=== PATIENT | female | born 1940 | race Caucasian/White ===

== ENCOUNTER → 2017-06-16 | Outpatient (CLI) | payer MEDICARE, OTHER ==
--- NOTE | 2017-06-16 12:14 | WOMENS IMAGING REPORT ---
EXAM DESCRIPTION: 3D SCREENING MAMMO BILAT COMPLETED DATE/TIME: 06/16/2017 10:31 am REASON FOR STUDY: ROUTINE SCREENING 3D; Z12.31 Z12.31 ENCNTR SCREEN MAMMOGRAM FOR MALIGNANT NEOPLAS M OF NIMISHA COMPARISON: 06/14/2016 and 03/28/2015. TECHNIQUE: Standard craniocaudal and mediolateral oblique views of each breast recorded using digita l acquisition and breast tomosynthesis. LIMITATIONS: None. FINDINGS: No masses, calcifications or architectural distortion. No areas of suspicion. Read with the assistance of CAD. .[facility] - R2 Cenova Version 1.3 .[facility] - R2 Cenova Version 1.3 .[facility] - R2 Cenova Version 2.4 .[facility] [place] R2 Cenova Version 2.4 .[facility] - R2 Ar Manager Version 9.2 IMPRESSION: NORMAL MAMMOGRAM. BIRADS 1. BREAST DENSITY: a. The breasts are almost entirely fatty. BIRAD: 1 NEGATIVE RECOMMENDATION: ROUTINE SCREENING COMMENT: The patient has been notified of the results by letter per SA requirements. Additional no tification policies are in place for contacting patient with suspicious or incomplete findings. Quality ID #225: The [employer] [employer] recommends an annual screening mammogram for women aged 40 years or over. This facility utilizes a reminder system to ensure that all patients receive reminder letters, and/or direct phone calls for appointments. This includes reminders for routine scr eening mammograms, diagnostic mammograms, or other Breast Imaging Interventions when appropriate. Th is patient will be placed in the appropriate reminder system. The [place] [employer] (ACR) has developed recommendations for screening MRI of the breast s in certain patient populations, to be used in conjunction with mammography. Breast MRI surveillanc e may be appropriate for women with more than 20% lifetime risk of developing breast cancer as deter mined by genetic testing, significant family history of the disease, or history of mantle radiation f or Hodgkins Disease. ACR Practice Guidelines 2008. DBT Technology DBT is a type of tomographic mammography. With conventional mammography, overlapping breast tissue ma y make lesions difficult to detect, even with good compression. DBT uses an x-ray tube that rotates a round the breast, taking images at different angles. These images are then combined to create thin sl ices of the breast that the radiologist can view as a 3D reconstruction. The [employer] Squad unit can perform full-field digital mammograms (2D imaging); or DBT (3D imaging); or both, in a combination mode that quickly performs both the mammogram and the tomosynthesis scan while the breast is still compressed. PQRS 6045F: Fluoroscopic imaging is not utilized for breast tomosynthesis. TECHNICAL DOCUMENTATION: FINDING NUMBER: (1) ASSESSMENT: (1) JOB ID: [id number] [email or web address]- All Rights Reserved
== END ==
LOC: WI 10:59
PROVIDERS: ATTEND Internal Medicine
DX: Z12.31 Encounter for screening mammogram for malignant neoplasm of breast (principal)
CPT/HCPCS: 77063; G0202; 77067

== ENCOUNTER 2018-02-25 08:51 | Emergency (ER) | payer MEDICARE, OTHER ==
[2018-02-25] MEDS ORDERED: RINGERS SOLUTION,LACTATED 1,000 ML IV ONE (09:24)
[2018-02-25] MEDS ORDERED: ONDANSETRON HCL INJ/PF 4 MG/2 ML SDV IV ONE (09:24)
[2018-02-25] MEDS ORDERED: PROCHLORPERAZINE EDISYLATE INJ 10 MG/2 ML VIAL IV ONE (09:24)
[2018-02-25 10:20] LABS: ANION GAP 11 (5-19); BLOOD UREA NITROGEN 16 mg/dL (7-20); CALCIUM 9.4 mg/dL (8.4-10.2); CARBON DIOXIDE 30 mmol/L (22-30); CHLORIDE 100 mmol/L (98-107); GLUCOSE 103 mg/dL (75-110); POTASSIUM 4.3 mmol/L (3.6-5.0); SODIUM 140.5 mmol/L (137-145)
--- NOTE | 2018-02-25 10:37 | RADIOLOGY REPORT (SQ) ---
EXAM DESCRIPTION: CT HEAD WITHOUT COMPLETED DATE/TIME: 02/25/2018 10:12 am REASON FOR STUDY: barry COMPARISON: None. TECHNIQUE: Axial images acquired through the brain without intravenous contrast. Images reviewed wi th bone, brain and subdural windows. Additional sagittal and coronal reconstructions were generated. Images stored on PACS. All CT scanners at this facility use dose modulation, iterative reconstruction, and/or weight based d osing when appropriate to reduce radiation dose to as low as reasonably achievable (ALARA). [facility]: Dose Right [facility]: CareDose [facility]: Dose Right [facility]: Teradose 4D [facility]: Dapt RADIATION DOSE: CT Rad equipment meets quality standard of care and radiation dose reduction techniq ues were employed. CTDIvol: 53.2 mGy. DLP: 964 mGy-cm. mGy. LIMITATIONS: None. FINDINGS: VENTRICLES: Normal size and contour. CEREBRUM: No masses. No hemorrhage. No midline shift. No evidence for acute infarction. Normal gra y/white matter differentiation. No areas of low density in the white matter. CEREBELLUM: No masses. No hemorrhage. No alteration of density. No evidence for acute infarction. EXTRAAXIAL SPACES: No fluid collections. No masses. ORBITS AND GLOBE: No intra- or extraconal masses. Normal contour of globe without masses. CALVARIUM: No fracture. PARANASAL SINUSES: No fluid or mucosal thickening. SOFT TISSUES: No mass or hematoma. OTHER: No other significant finding. IMPRESSION: No significant intracranial abnormalities were identified. Findings as noted above EVIDENCE OF ACUTE STROKE: NO. COMMENT: Quality ID # [id number]: Final reports with documentation of one or more dose reduction techniques (e.g., Automated exposure control, adjustment of the mA and/or kV according to patient size, use of iterative reconstruction technique) TECHNICAL DOCUMENTATION: JOB ID: [id number] [employer]- All Rights Reserved Reading location - IP/workstation name: [email or web address]
[2018-02-25] MEDS ORDERED: KETOROLAC TROMETHAMINE INJ/PF 30 MG/1 ML SDV IV ONE (10:49)
--- NOTE | 2018-02-25 12:00 | ER Document Report ---
ED General - General Chief Complaint: Headache >24 hrs old Stated Complaint: HEADACHE Time Seen by Provider: 02/25/18 09:12 TRAVEL OUTSIDE OF THE [place] IN LAST 30 DAYS: No - HPI Patient complains to provider of: Headache Notes: Patient coming in for headache ongoing for the last 3 days. Patient states sharp shooting in nature on the right side of her head. Patient denies any fevers chills nausea vomiting diarrhea denies any trauma. Patient states she has not had a headache like this before however was able to drive to the ER for evaluation. Patient states no relief with Tylenol Motrin at home. Patient otherwise is resting comfortably in a chair no signs of any obvious distress. Patient states she did have chickenpox as she was younger no history of shingles - Related Data Allergies/Adverse Reactions: codeine [Codeine] Allergy (Intermediate, Verified 02/25/18 08:53) N&V Past Medical History - Social History Smoking Status: Unknown if Ever Smoked Chew tobacco use (# tins/day): No Frequency of alcohol use: None Drug Abuse: None Family History: None Patient has suicidal ideation: No Patient has homicidal ideation: No - Past Medical History Cardiac Medical History: Reports: Hx Hypercholesterolemia, Hx Hypertension Denies: Hx Coronary Artery Disease, Hx Heart Attack Pulmonary Medical History: Denies: Hx Asthma, Hx Bronchitis, Hx COPD, Hx Pneumonia Neurological Medical History: Denies: Hx Cerebrovascular Accident, Hx Seizures Renal/ Medical History: Denies: Hx Peritoneal Dialysis GI Medical History: Reports: Hx Gastroesophageal Reflux Disease Musculoskeltal Medical History: Denies Hx Arthritis Past Surgical History: Reports: Hx Thyroid Surgery. Denies: Hx Pacemaker - Immunizations Hx Diphtheria, Pertussis, Tetanus Vaccination: No Hx Pneumococcal Vaccination: 08/13/11 Review of Systems - Review of Systems Constitutional: No symptoms reported EENT: No symptoms reported Cardiovascular: No symptoms reported Respiratory: No symptoms reported Gastrointestinal: No symptoms reported Genitourinary: No symptoms reported Female Genitourinary: No symptoms reported Musculoskeletal: No symptoms reported Skin: No symptoms reported Hematologic/Lymphatic: No symptoms reported Neurological/Psychological: Headaches -: Yes All other systems reviewed and negative Physical Exam - Vital signs Vitals: Temp Pulse Resp BP Pulse Ox 98.1 F 86 16 148/69 H 98 02/25/18 08:55 02/25/18 08:55 02/25/18 08:55 02/25/18 08:55 02/25/18 08:55 Interpretation: Normal - General General appearance: Appears well, Alert - HEENT Head: Normocephalic, Atraumatic Eyes: Normal Pupils: PERRL - Respiratory Respiratory status: No respiratory distress Chest status: Nontender Breath sounds: Normal Chest palpation: Normal - Cardiovascular Rhythm: Regular Heart sounds: Normal auscultation Murmur: No - Abdominal Inspection: Normal Distension: No distension Bowel sounds: Normal Tenderness: Nontender Organomegaly: No organomegaly - Back Back: Normal, Nontender - Extremities General upper extremity: Normal inspection, Nontender, Normal color, Normal ROM , Normal temperature General lower extremity: Normal inspection, Nontender, Normal color, Normal ROM , Normal temperature, Normal weight bearing. No: Meliza's sign - Neurological Neuro grossly intact: Yes Cognition: Normal Orientation: AAOx4 [place] Coma Scale Eye Opening: Spontaneous [place] Coma Scale Verbal: Oriented [place]ree[place] Coma Scale Motor: Obeys Commands [place] Coma Scale Total: 15 Speech: Normal Motor strength normal: LUE, RUE, LLE, RLE Sensory: Normal - Psychological Associated symptoms: Normal affect, Normal mood - Skin Skin Temperature: Warm Skin Moisture: Dry Skin Color: Normal Course - Re-evaluation Re-evalutation: 02/25/18 14:32 The patient presents with headache without signs of CALL CENTER TRAINER bleed, stroke, infection , or other serious etiology. The patient is neurologically intact. Given the extremely low risk of these diagnoses further testing and evaluation for these possibilities does not appear to be indicated at this time. The patient has been instructed to return if the symptoms worsen or change in any way.. Patient feeling better after ketorolac. Unclear etiology of the patient's headache did warn patient that she is having sharp shooting pain on one side of her head to be aware of a rash or possible shingles outbreak. - Vital Signs Vital signs: Temp Pulse Resp BP Pulse Ox 98.1 F 73 19 127/52 H 96 02/25/18 12:06 02/25/18 12:06 02/25/18 12:06 02/25/18 12:06 02/25/18 12:06 - Laboratory Result Diagrams: 02/25/18 09:45 Discharge - Discharge Clinical Impression: Headache Qualifiers: Headache type: unspecified Headache chronicity pattern: unspecified pattern Intractability: not intractable Qualified Code(s): R51 - Headache Condition: Good Disposition: HOME, SELF-CARE Instructions: Headache ([facility]) Additional Instructions: Please make sure you are drinking plenty water to stay hydrated. Return to the ER if symptoms worsen. Follow-up with your primary care physician. I recommend continue take Tylenol and Motrin for your headache return to ER if symptoms worsen. Referrals: SUNG CLEVELAND MD [Primary Care Provider] - Follow up as needed
[2018-02-25 12:09] VITALS: BP 127/52
== END 2018-02-25 12:08 | disposition home or self-care (01) ==
LOC: ER 08:51
DX: R51 Headache (principal); I10 Essential (primary) hypertension
CPT/HCPCS: 99284; 96361; 96374; 96375; 36415; 80048; 70450; J1885; J0780; J2405; J7120

== ENCOUNTER → 2019-03-24 | Outpatient (CLI) | payer MEDICARE ==
--- NOTE | 2019-03-24 11:41 | WOMENS IMAGING REPORT ---
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 Read with the assistance of CAD. .[facility] - [employer] Programmer Version 9.2 LIMITATIONS: None. FINDINGS: No suspicious masses, suspicious calcifications or architectural distortion. No areas of c oncern. IMPRESSION: Assessment: Negative MAMMOGRAM. BIRADS 1. BREAST DENSITY: a. The breasts are almost entirely fatty. BIRAD: 1 NEGATIVE RECOMMENDATION: ROUTINE SCREENING COMMENT: The patient has been notified of the results by letter per MQSA requirements. Additional no tification policies are in place for contacting patient with suspicious or incomplete findings. Quality ID #225: The [place] [employer] recommends an annual screening mammogram for women aged 40 years or over. This facility utilizes a reminder system to ensure that all patients receive reminder letters, and/or direct phone calls for appointments. This includes reminders for routine scr eening mammograms, diagnostic mammograms, or other Breast Imaging Interventions when appropriate. Th is patient will be placed in the appropriate reminder system. TECHNICAL DOCUMENTATION: FINDING NUMBER: (1) ASSESSMENT: (1) JOB ID: [id number] [employer]- All Rights Reserved Reading location - IP/workstation name: [email or web address]
--- NOTE | 2019-03-24 11:42 | WOMENS IMAGING REPORT ---
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 LIMITATIONS: None. FINDINGS: LUMBAR SPINE: The bone mineral density (BMD) measured from L1-L4 in the AP projection correlates with a T-score of -1.0, which is normal as defined by the World Health Organization. This is similar compared to 2013, and includes vertebral body endplate sclerosis and posterior element sclerosis HIP: The bone mineral density (BMD) measured in the left femoral neck at the hip correlates with a T-score of -1.2, which is osteopenic as defined by the World Health Organization. This is stable compared t o 2013 IMPRESSION: 1. LUMBAR SPINE: Normal 2. HIP: Osteopenic COMMENT: The World Health Organization defines low BMD as follows: T-score: Normal: Greater than -1.0 Osteopenia: Between -1.0 and -2.5 Osteoporosis: Less than -2.5 without fractures Established osteoporosis: Less than -2.5 with fractures In general, you may wish to consider: Diagnosis Treatment Follow-up DEXA Normal BMD Prevention 2-3 years Osteopenia Prevention/Therapy 1-2 years Osteoporosis Therapy Yearly TECHNICAL DOCUMENTATION: JOB ID: [id number] [employer]- All Rights Reserved Reading location - IP/workstation name: [email or web address]
== END ==
LOC: WI 09:59
PROVIDERS: ATTEND Internal Medicine
DX: M81.0 Age-related osteoporosis without current pathological fracture (principal); Z12.31 Encounter for screening mammogram for malignant neoplasm of breast
CPT/HCPCS: 77063; 77067; 77080

== ENCOUNTER 2019-09-15 13:02 | Observation (INO) | payer MEDICARE, MEDICAID ==
[2019-09-15] MEDS ORDERED: ASPIRIN 81 MG TABLET, CHEWABLE PO ONE (13:18)
--- NOTE | 2019-09-15 13:22 | ER Document Report ---
ED Medical Screen (RME) - General Chief Complaint: Chest Pain Stated Complaint: CHEST PAIN Time Seen by Provider: 09/15/19 13:18 Primary Care Provider: SUNG CLEVELAND MD [Primary Care Provider] - Follow up as needed Mode of Arrival: Ambulatory Information source: Patient Notes: 79-year-old female presented to ED for complaint of chest pain since last night. She states that time she has had chest pain in the past taking her reflux medication and it did relieve it but this time it has not. She does have a history of reflux blood pressure cholesterol thyroid cancer. She has had part of her thyroid removed. Is smoking drinking or using any illicit drugs. She states her thyroid cancer surgery was 5 years ago. Patient is alert oriented respirations regular nonlabored speaking in full sentences. I have greeted and performed a rapid initial assessment of this patient. A comprehensive ED assessment and evaluation of the patient, analysis of test results and completion of medical decision making process will be conducted by an additional ED providers. TRAVEL OUTSIDE OF THE [place] IN LAST 30 DAYS: No - Related Data Allergies/Adverse Reactions: codeine [Codeine] Allergy (Intermediate, Verified 02/25/18 08:53) N&V Past Medical History - Past Medical History Cardiac Medical History: Reports: Hx Hypercholesterolemia, Hx Hypertension Denies: Hx Coronary Artery Disease, Hx Heart Attack Pulmonary Medical History: Denies: Hx Asthma, Hx Bronchitis, Hx COPD, Hx Pneumonia Neurological Medical History: Denies: Hx Cerebrovascular Accident, Hx Seizures Renal/ Medical History: Denies: Hx Peritoneal Dialysis GI Medical History: Reports: Hx Gastroesophageal Reflux Disease Musculoskeltal Medical History: Denies Hx Arthritis Past Surgical History: Reports: Hx Thyroid Surgery. Denies: Hx Pacemaker - Immunizations Hx Diphtheria, Pertussis, Tetanus Vaccination: No Doctor's Discharge - Discharge Referrals: SUNG CLEVELAND MD [Primary Care Provider] - Follow up as needed
[2019-09-15 14:04] LABS: ABSOLUTE BASOPHILS # (AUTO) 0.1 10^3/uL (0.0-0.2); ABSOLUTE EOSINOPHILS # (AUTO) 0.2 10^3/uL (0.0-0.6); ABSOLUTE LYMPHOCYTES (AUTO) 1.8 10^3/uL (0.5-4.7); ABSOLUTE MONOCYTES (AUTO) 0.5 10^3/uL (0.1-1.4); ABSOLUTE NEUT (AUTO) 4.5 10^3/uL (1.7-8.2); BASOPHILS % (AUTO) 0.8 % (0-2); EOSINOPHILS % (AUTO) 3.2 % (0-6); HEMATOCRIT 41.2 % (36.0-47.0); HEMOGLOBIN 14.3 g/dL (12.0-15.5); LYMPHOCYTES % (AUTO) 25.6 % (13-45); MEAN CORPUSCULAR HGB CONC 34.6 g/dL (32.0-36.0); MEAN CORPUSCULAR VOLUME 87 fl (80-97); MONOCYTES % (AUTO) 7.2 % (3-13); PLATELET COUNT 214 10^3/uL (150-450); RED BLOOD COUNT 4.75 10^6/uL (3.72-5.28); RED CELL DISTRIBUTION WIDTH 14.8 % (11.5-14.0); SEGMENTED NEUTROPHILS % (AUTO) 63.2 % (42-78); TOTAL CELLS COUNTED % (AUTO) 100 %; WHITE BLOOD COUNT 7.1 10^3/uL (4.0-10.5)
--- NOTE | 2019-09-15 14:19 | RADIOLOGY REPORT (SQ) ---
EXAM DESCRIPTION: CHEST 2 VIEWS COMPLETED DATE/TIME: 09/15/2019 2:03 pm REASON FOR STUDY: chest pain COMPARISON: None. EXAM PARAMETERS: NUMBER OF VIEWS: two views TECHNIQUE: Digital Frontal and Lateral radiographic views of the chest acquired. RADIATION DOSE: NA LIMITATIONS: none FINDINGS: LUNGS AND PLEURA: No opacities, masses or pneumothorax. No pleural effusion. MEDIASTINUM AND HILAR STRUCTURES: No masses or contour abnormalities. HEART AND VASCULAR STRUCTURES: Heart normal size. No evidence for failure. BONES: No acute findings. HARDWARE: None in the chest. OTHER: No other significant finding. IMPRESSION: NO ACUTE RADIOGRAPHIC FINDING IN THE CHEST. TECHNICAL DOCUMENTATION: JOB ID: [id number] [employer]- All Rights Reserved Reading location - IP/workstation name: [email or web address]
[2019-09-15 14:30] LABS: ALBUMIN 4.4 g/dL (3.5-5.0); ALKALINE PHOSPHATASE 75 U/L (38-126); ANION GAP 11 (5-19); ASPARTATE AMINO TRANSFERASE 39 U/L (14-36); BILIRUBIN,DIRECT 0.2 mg/dL (0.0-0.4); BILIRUBIN,TOTAL 0.6 mg/dL (0.2-1.3); BLOOD UREA NITROGEN 15 mg/dL (7-20); CALCIUM 9.4 mg/dL (8.4-10.2); CARBON DIOXIDE 25 mmol/L (22-30); CHLORIDE 103 mmol/L (98-107); GLUCOSE 94 mg/dL (75-110); POTASSIUM 4.5 mmol/L (3.6-5.0); TOTAL PROTEIN 7.4 g/dL (6.3-8.2)
[2019-09-15 14:40] LABS: NT PRO BNP 202 pg/mL (<450)
[2019-09-15 14:50] LABS: TROPONIN I < 0.012 ng/mL
--- NOTE | 2019-09-15 18:18 | ER Document Report ---
ED General - General Chief Complaint: Chest Pain Stated Complaint: CHEST PAIN Time Seen by Provider: 09/15/19 13:18 Primary Care Provider: SUNG CLEVELAND MD [Primary Care Provider] - Follow up as needed Mode of Arrival: Ambulatory Information source: Patient Notes: This 79-year-old female with history of thyroid cancer hypertension high cholesterol presents emergency department with reports of chest pain on the left side of her chest that radiated to her back. She reports it started at 2:00 this morning woke her up. She reports she felt short of breath. She reports she thought it was her reflux so she took medication but it did not take the symptoms away. She reports that she never became nauseated no diaphoresis. Denies history of cardiac disease. She reports the symptoms continued in the morning so she called her Friday home school liaison officer who told her to come to the emergency department. She reports once they gave her the 4 baby aspirins her chest pain went away. She reports she is chest pain-free now. TRAVEL OUTSIDE OF THE [place] IN LAST 30 DAYS: No - HPI Onset: This morning Onset/Duration: Sudden Quality of pain: Achy Associated symptoms: None Exacerbated by: Denies Relieved by: Denies Similar symptoms previously: No Recently seen / treated by doctor: No - Related Data Allergies/Adverse Reactions: codeine [Codeine] Allergy (Intermediate, Verified 09/15/19 13:20) N&V Past Medical History - General Information source: Patient - Social History Smoking Status: Never Smoker Chew tobacco use (# tins/day): No Frequency of alcohol use: None Drug Abuse: None Family History: None Patient has suicidal ideation: No Patient has homicidal ideation: No - Past Medical History Cardiac Medical History: Reports: Hx Hypercholesterolemia, Hx Hypertension Denies: Hx Coronary Artery Disease, Hx Heart Attack Pulmonary Medical History: Denies: Hx Asthma, Hx Bronchitis, Hx COPD, Hx Pneumonia Neurological Medical History: Denies: Hx Cerebrovascular Accident, Hx Seizures Renal/ Medical History: Denies: Hx Peritoneal Dialysis Malignancy Medical History: Reports: Other - thyroid GI Medical History: Reports: Hx Gastroesophageal Reflux Disease Musculoskeletal Medical History: Denies Hx Arthritis Past Surgical History: Reports: Hx Thyroid Surgery. Denies: Hx Pacemaker - Immunizations Hx Diphtheria, Pertussis, Tetanus Vaccination: No Hx Pneumococcal Vaccination: 08/13/11 Review of Systems - Review of Systems Notes: Review HPI for review of systems., All other systems negative Physical Exam - Vital signs Vitals: Temp Pulse Resp BP Pulse Ox 98.4 F 77 14 174/77 H 99 09/15/19 13:16 09/15/19 13:16 09/15/19 13:16 09/15/19 13:16 09/15/19 13:16 - Notes Notes: PHYSICAL EXAMINATION: GENERAL: Well-appearing and in no acute distress HEAD: Atraumatic, normocephalic. EYES: Pupils equal round extraocular movements intact, sclera anicteric, conjunctiva are normal. ENT: nares patent, Moist mucous membranes. NECK: Normal range of motion, supple without lymphadenopathy LUNGS: CTAB and equal. No wheezes rales or rhonchi. HEART: Regular rate and rhythm without murmurs ABDOMEN: Soft, no tenderness. No guarding, no rebound EXTREMITIES: Normal range of motion NEUROLOGICAL: Cranial nerves grossly intact. Normal sensory/motor exams. PSYCH: Normal mood, normal affect. SKIN: Warm, Dry, normal turgor, no rashes or lesions noted Course - Re-evaluation Re-evalutation: 09/15/19 18:09 This 79-year-old female presents emergency department with chest pain rating to her back that woke her up at 0200 this morning. She reports it took her breath away made her feel short of breath. Denies chills, diaphoresis, vomiting fever diarrhea. Denies history of cardiac disease. EKG shows sinus rhythm no ST elevation no T wave inversion. Labs unremarkable two troponins negative. Chest x-ray negative. Dr. Leonardo contacted for admission. He accepts admission. Patient to be admitted observation telemetry. Chest X-Ray 09/15/19 13:19 IMPRESSION: NO ACUTE RADIOGRAPHIC FINDING IN THE CHEST. 09/15/19 13:45 09/15/19 13:45 MCV 87 fl (80-97) 09/15/19 13:45 MCH 30.0 pg (27.0-33.4) 09/15/19 13:45 MCHC 34.6 g/dL (32.0-36.0) 09/15/19 13:45 RDW 14.8 % (11.5-14.0) H 09/15/19 13:45 Seg Neutrophils % 63.2 % (42-78) 09/15/19 13:45 Chloride 103 mmol/L (98-107) 09/15/19 13:45 Carbon Dioxide 25 mmol/L (22-30) 09/15/19 13:45 Anion Gap 11 (5-19) 09/15/19 13:45 Est GFR ( Amer) > 60 (>60) 09/15/19 13:45 Glucose 94 mg/dL (75-110) 09/15/19 13:45 Calcium 9.4 mg/dL (8.4-10.2) 09/15/19 13:45 Magnesium 2.1 mg/dL (1.6-2.3) 09/15/19 13:45 Total Bilirubin 0.6 mg/dL (0.2-1.3) 09/15/19 13:45 AST 39 U/L (14-36) H 09/15/19 13:45 Alkaline Phosphatase 75 U/L (38-126) 09/15/19 13:45 Total Protein 7.4 g/dL (6.3-8.2) 09/15/19 13:45 Albumin 4.4 g/dL (3.5-5.0) 09/15/19 13:45 09/15/19 13:45 Troponin I < 0.012 NT-Pro-B Natriuret Pep 202 - Vital Signs Vital signs: Temp Pulse Resp BP Pulse Ox 98.4 F 77 18 175/80 H 98 09/15/19 13:16 09/15/19 13:16 09/15/19 18:29 09/15/19 18:29 09/15/19 18:29 - Laboratory Result Diagrams: 09/15/19 13:45 09/15/19 13:45 Laboratory results interpreted by me: 09/15/19 09/15/19 09/15/19 13:45 13:45 18:13 RDW 14.8 H AST 39 H Ur Leukocyte Esterase SMALL H - Diagnostic Test Radiology reviewed: Image reviewed, Reports reviewed - EKG Interpretation by Me EKG shows normal: Sinus rhythm Rate: Normal Rhythm: NSR When compared to previous EKG there are: No significant change Additional EKG results interpreted by me: 09/15/19 18:[address] elevation no T wave inversion - Consults tawana Time consulted: 19:44 Reason for consultation: 09/15/19 19:44 chest pain Consulted provider: will see as inpatient Discharge - Discharge Clinical Impression: Chest pain Qualifiers: Chest pain type: unspecified Qualified Code(s): R07.9 - Chest pain, unspecified Condition: Stable Disposition: ADMITTED OBSERVATION Admitting Provider: Tawana (Hospitalist) Unit Admitted: Telemetry Referrals: SUNG CLEVELAND MD [Primary Care Provider] - Follow up as needed
[2019-09-15 19:09] LABS: APPEARANCE,URINE CLEAR; BILIRUBIN,URINE NEGATIVE (NEGATIVE); COLOR,URINE YELLOW; GLUCOSE, URINE NEGATIVE (NEGATIVE); KETONES,URINE NEGATIVE (NEGATIVE); LEUKOCYTE ESTERASE,URINE SMALL (NEGATIVE); NITRITE,URINE NEGATIVE (NEGATIVE); PROTEIN,URINE NEGATIVE (NEGATIVE); URINE SPECIFIC GRAVITY 1.006; UROBILINOGEN,URINE NEGATIVE mg/dL (<2.0)
[2019-09-15] MEDS ORDERED: LACTULOSE SYRUP 20 GM/30 ML UDCUP PO ONE (19:37)
[2019-09-15] MEDS ORDERED: AMLODIPINE BESYLATE 10 MG TABLET PO ONE (19:37)
[2019-09-15] MEDS ORDERED: NITROGLYCERIN 0.4 MG/TAB 25 TAB/BOTTLE SL PRN (19:38)
[2019-09-15] MEDS ORDERED: MAG HYDROX/AL HYDROX/SIMETH SUSP 30 ML UDCUP PO PRN (19:38)
[2019-09-15] MEDS ORDERED: ACETAMINOPHEN 325 MG TABLET PO PRN (19:38)
[2019-09-15] MEDS ORDERED: ATORVASTATIN CALCIUM 10 MG TABLET PO SCH (22:00)
[2019-09-15] MEDS: FAMOTIDINE 20 MG TABLET PO SCH (23:18)
--- NOTE | 2019-09-15 23:59 | EKG REPORT ---
SEVERITY:- NORMAL ECG - SINUS RHYTHM : Confirmed by: Héctor Augustine 15-Sep-2019 23:58:39
--- NOTE | 2019-09-15 23:59 | EKG REPORT ---
SEVERITY:- OTHERWISE NORMAL ECG - SINUS RHYTHM BORDERLINE LEFT AXIS DEVIATION : Confirmed by: Héctor Augustine 15-Sep-2019 23:58:33
[2019-09-16] MEDS ORDERED: ENALAPRILAT DIHYDRATE INJ/PF 2.5 MG/2 ML SDV IV ONE (06:02)
--- NOTE | 2019-09-16 06:07 | PDOC H&P ---
History of Present Illness Admission Date/PCP: 09/15/19 19:44 SUNG CLEVELAND MD Patient complains of: Chest pain History of Present Illness: PUSHPA ESTRELLA is a 79 year old female with a past medical history of hypertension, dyslipidemia and iatrogenic hypothyroidism status post thyroidectomy for thyroid cancer. She presents with 8 hours of retrosternal chest pain 2 out of 5 intensity, nonradiating initially burning in nature. Associated with shortness of breath without palpitations nausea or diaphoresis. Pain was unimproved with a trial acid reflux treatment. Pain improved following aspirin. In the emergency room she has an unremarkable work-up and is referred to the hospitalist for admission and pain-free. She denies recent change of medications Past Medical History Cardiac Medical History: Reports: Hyperlipidema, Hypertension Denies: Coronary Artery Disease, Myocardial Infarction Pulmonary Medical History: Denies: Asthma, Bronchitis, Chronic Obstructive Pulmonary Disease (COPD), Pneumonia Neurological Medical History: Denies: Seizures Malignancy Medical History: Reports: Other - thyroid GI Medical History: Reports: Gastroesophageal Reflux Disease Musculoskeltal Medical History: Denies: Arthritis Hematology: Denies: Anemia Past Surgical History Past Surgical History: Denies: Pacemaker Social History Information Source: Patient, [facility] Records Smoking Status: Never Smoker Electronic Cigarette use?: No Frequency of Alcohol Use: None Drugs: None - Advance Directive Resuscitation Status: Full Code Family History Family History: Hypertension Parental Family History Reviewed: Yes Children Family History Reviewed: Yes Sibling(s) Family History Reviewed.: Yes Medication/Allergy Home Medications: Amlodipine Besylate [Norvasc 5 mg Tablet] 5 mg PO DAILY 09/15/19 Atorvastatin Calcium [Lipitor 10 mg Tablet] 10 mg PO QHS 09/15/19 Esomeprazole Magnesium 40 mg PO DAILY 09/15/19 Levothyroxine Sodium [Synthroid 0.088 mg Tablet] 0.088 mg PO Q6AM 09/15/19 Allergies/Adverse Reactions: codeine [Codeine] Allergy (Intermediate, Verified 09/15/19 13:20) N&V Review of Systems Constitutional: ABSENT: chills, fever(s), headache(s), weight gain, weight loss Eyes: ABSENT: visual disturbances Ears: ABSENT: hearing changes Cardiovascular: ABSENT: chest pain, dyspnea on exertion, edema, orthropnea, palpitations Respiratory: ABSENT: cough, hemoptysis Gastrointestinal: ABSENT: abdominal pain, constipation, diarrhea, hematemesis, hematochezia, nausea, vomiting Genitourinary: ABSENT: dysuria, hematuria Musculoskeletal: ABSENT: joint swelling Integumentary: ABSENT: rash, wounds Neurological: ABSENT: abnormal gait, abnormal speech, confusion, dizziness, focal weakness, syncope Psychiatric: ABSENT: anxiety, depression, homidical ideation, suicidal ideation Endocrine: ABSENT: cold intolerance, heat intolerance, polydipsia, polyuria Hematologic/Lymphatic: ABSENT: easy bleeding, easy bruising Physical Exam Vital Signs: Temp Pulse Resp BP Pulse Ox 97.4 F 64 19 177/77 H 96 09/15/19 22:46 09/16/19 02:00 09/15/19 22:46 09/15/19 19:02 09/15/19 22:46 Intake & Output 09/14/19 09/15/19 09/16/19 11:59 11:59 11:59 Weight 72 kg General appearance: PRESENT: no acute distress, well-developed, well-nourished Head exam: PRESENT: atraumatic, normocephalic Eye exam: PRESENT: conjunctiva pink, EOMI, PERRLA. ABSENT: scleral icterus Ear exam: PRESENT: normal external ear exam Mouth exam: PRESENT: moist, tongue midline Neck exam: ABSENT: carotid bruit, JVD, lymphadenopathy, thyromegaly Respiratory exam: PRESENT: clear to auscultation ray. ABSENT: rales, rhonchi, wheezes Cardiovascular exam: PRESENT: RRR. ABSENT: diastolic murmur, rubs, systolic murmur Pulses: PRESENT: normal dorsalis pedis pul Vascular exam: PRESENT: normal capillary refill GI/Abdominal exam: PRESENT: normal bowel sounds, soft. ABSENT: distended, gu arding, mass, organolmegaly, rebound, tenderness Rectal exam: PRESENT: deferred Extremities exam: PRESENT: full ROM. ABSENT: calf tenderness, clubbing, pedal edema Neurological exam: PRESENT: alert, awake, oriented to person, oriented to place, oriented to time, oriented to situation, CN II-XII grossly intact. ABSENT: mot or sensory deficit Psychiatric exam: PRESENT: appropriate affect, normal mood. ABSENT: homicidal ideation, suicidal ideation Skin exam: PRESENT: dry, intact, warm. ABSENT: cyanosis, rash Results Laboratory Results: 09/15/19 13:45 09/15/19 13:45 09/15/19 09/15/19 09/15/19 13:45 13:45 13:45 WBC 7.1 RBC 4.75 Hgb 14.3 Hct 41.2 MCV 87 MCH 30.0 MCHC 34.6 RDW 14.8 H Plt Count 214 Seg Neutrophils % 63.2 Sodium 139.3 Potassium 4.5 Chloride 103 Carbon Dioxide 25 Anion Gap 11 BUN 15 Creatinine 0.79 Est GFR ( Amer) > 60 Glucose 94 Calcium 9.4 Magnesium 2.1 Total Bilirubin 0.6 AST 39 H Alkaline Phosphatase 75 Total Protein 7.4 Albumin 4.4 Lipase 219.9 TSH Urine Color Urine Appearance Urine pH Ur Specific [place] Urine Protein Urine Glucose (UA) Urine Ketones Urine Blood Urine Nitrite Ur Leukocyte Esterase Urine WBC (Auto) Urine RBC (Auto) 09/15/19 09/15/19 13:45 18:13 WBC RBC Hgb Hct MCV MCH MCHC RDW Plt Count Seg Neutrophils % Sodium Potassium Chloride Carbon Dioxide Anion Gap BUN Creatinine Est GFR ( Amer) Glucose Calcium Magnesium Total Bilirubin AST Alkaline Phosphatase Total Protein Albumin Lipase TSH 3.36 Urine Color YELLOW Urine Appearance CLEAR Urine pH 6.0 Ur Specific [place] 1.006 Urine Protein NEGATIVE Urine Glucose (UA) NEGATIVE Urine Ketones NEGATIVE Urine Blood NEGATIVE Urine Nitrite NEGATIVE Ur Leukocyte Esterase SMALL H Urine WBC (Auto) 9 Urine RBC (Auto) 1 09/15/19 09/15/19 09/16/19 13:45 18:13 00:50 Troponin I < 0.012 < 0.012 < 0.012 NT-Pro-B Natriuret Pep 202 Impressions: Chest X-Ray 09/15/19 13:19 IMPRESSION: NO ACUTE RADIOGRAPHIC FINDING IN THE CHEST. Assessment and Plan - Diagnosis (1) Chest pain Qualifiers: Chest pain type: unspecified Qualified Code(s): R07.9 - Chest pain, unspecified Is this a current diagnosis for this admission?: Yes Plan: Atypical chest pain though the patient's pain is atypical there are multiple risk factors for coronary artery disease and subsequently will observe and evaluation of acute coronary syndrome versus coronary artery disease with anginal equivalents. Cardiac monitoring blood pressure Q6 hours ,TSH, lipid profile, serial cardiac enzymes and cardiac stress test (2) Hypertension Is this a current diagnosis for this admission?: Yes Plan: Nitrates and DAISY inhibitor (3) GERD (gastroesophageal reflux disease) Is this a current diagnosis for this admission?: Yes Plan: Pepcid (4) Dyslipidemia Is this a current diagnosis for this admission?: Yes Plan: Statin, follow-up lipid profile (5) Hypothyroidism Is this a current diagnosis for this admission?: Yes Plan: Follow-up TSH - Time Time Spent with patient: 25-34 minutes - Inpatient Certification Medical Necessity: Risk of Diagnosis Which Will Require Inpatient Eval/Care/Monitoring
[2019-09-16 06:30] LABS: CHOLESTEROL 169.33 mg/dL (0-200); TRIGLYCERIDES 154 mg/dL (<150)
[2019-09-16 06:40] LABS: DIRECT LDL 109 mg/dL (<100)
[2019-09-16 06:41] LABS: VLDL CHOLESTEROL 30.8 mg/dL (10-31)
[2019-09-16] MEDS ORDERED: INFLUENZA QUAD (6MOS+) 2019-20 VAC 0.5 ML SYR IM ONE (10:00)
[2019-09-16] MEDS: FAMOTIDINE 20 MG TABLET PO SCH (13:03)
[2019-09-16 14:21] VITALS: BP 145/70
[2019-09-16] MEDS ORDERED: REGADENOSON INJ 0.4 MG/5 ML DISP.SYRIN IV ONE (14:21)
--- NOTE | 2019-09-16 18:31 | PDOC DISCHARGE SUMMARY ---
Impression - Admit/DC Date/PCP Admission Date/Primary Care Provider: 09/15/19 19:44 SUNG CLEVELAND MD Discharge Date: 09/16/19 - Discharge Diagnosis (1) Chest pain Is this a current diagnosis for this admission?: Yes (2) GERD (gastroesophageal reflux disease) Is this a current diagnosis for this admission?: Yes (3) Dyslipidemia Is this a current diagnosis for this admission?: Yes (4) Hypertension Is this a current diagnosis for this admission?: Yes - Additional Information Resuscitation Status: Full Code Discharge Diet: As Tolerated Discharge Activity: Activity As Tolerated Referrals: SUNG CLEVELAND MD [Primary Care Provider] - 09/20/19 2:45 pm (Check in at 2:30pm. Previously scheduled appt. time changed per provider's office.) Prescriptions: Sennosides/Docusate Sodium [Senna Plus 8.6-50 mg Tablet] 1 each PO BIDP PRN #10 tablet PRN Reason: For Constipation Home Medications: Amlodipine Besylate [Norvasc 5 mg Tablet] 5 mg PO DAILY 09/15/19 Atorvastatin Calcium [Lipitor 10 mg Tablet] 10 mg PO QHS 09/15/19 Esomeprazole Magnesium 40 mg PO DAILY 09/15/19 Levothyroxine Sodium [Synthroid 0.088 mg Tablet] 0.088 mg PO Q6AM 09/15/19 Sennosides/Docusate Sodium [Senna Plus 8.6-50 mg Tablet] 1 each PO BIDP PRN #10 tablet 09/16/19 History of Present Illiness History of Present Illness: Admitting hospitalist's H&P: PUSHPA ESTRELLA is a 79 year old female with a past medical history of hypertension, dyslipidemia and iatrogenic hypothyroidism status post thyroidectomy for thyroid cancer. She presents with 8 hours of retrosternal chest pain 2 out of 5 intensity, nonradiating initially burning in nature. Associated with shortness of breath without palpitations nausea or diaphoresis. Pain was unimproved with a trial acid reflux treatment. Pain improved following aspirin. In the emergency room she has an unremarkable work-up and is referred to the hospitalist for admission and pain-free. She denies recent change of medications. Hospital Course Hospital Course: Is an 79-year-old female who was admitted for chest pain to rule out ACS. Her troponins were cycled and all came back negative. Her EKGs were also cycled. She did have any acute changes compared to her previous EKGs. Stress testing was pursued and this came back unremarkable. She is recommended to continue taking her esomeprazole at home and consider referral to GI for outpatient EGD on ff-up with PCP to further evaluate for noncardiac origin of chest pain. Physical Exam Vital Signs: Temp Pulse Resp BP Pulse Ox 97.5 F 68 11 L 145/70 H 93 09/16/19 16:41 09/16/19 16:41 09/16/19 16:41 09/16/19 12:17 09/16/19 16:41 Intake & Output 09/15/19 09/16/19 09/17/19 06:59 06:59 06:59 Intake Total 474 Balance 474 Weight 158 lb 11.725 oz General appearance: PRESENT: no acute distress, well-developed, well-nourished Head exam: PRESENT: atraumatic, normocephalic Eye exam: PRESENT: conjunctiva pink, EOMI, PERRLA. ABSENT: scleral icterus Ear exam: PRESENT: normal external ear exam Mouth exam: PRESENT: moist, tongue midline Neck exam: ABSENT: carotid bruit, JVD, lymphadenopathy, thyromegaly Respiratory exam: PRESENT: clear to auscultation ray. ABSENT: rales, rhonchi, wheezes Cardiovascular exam: PRESENT: RRR. ABSENT: diastolic murmur, rubs, systolic murmur Pulses: PRESENT: normal dorsalis pedis pul GI/Abdominal exam: PRESENT: normal bowel sounds, soft. ABSENT: distended, guarding, mass, organolmegaly, rebound, tenderness Rectal exam: PRESENT: deferred Extremities exam: PRESENT: full ROM. ABSENT: calf tenderness, clubbing, pedal edema Neurological exam: PRESENT: alert, awake, oriented to person, oriented to place, oriented to time, oriented to situation, CN II-XII grossly intact. ABSENT: motor sensory deficit Results Laboratory Results: WBC 7.1 10^3/uL (4.0-10.5) 09/15/19 13:45 RBC 4.75 10^6/uL (3.72-5.28) 09/15/19 13:45 Hgb 14.3 g/dL (12.0-15.5) 09/15/19 13:45 Hct 41.2 % (36.0-47.0) 09/15/19 13:45 MCV 87 fl (80-97) 09/15/19 13:45 MCH 30.0 pg (27.0-33.4) 09/15/19 13:45 MCHC 34.6 g/dL (32.0-36.0) 09/15/19 13:45 RDW 14.8 % (11.5-14.0) H 09/15/19 13:45 Plt Count 214 10^3/uL (150-450) 09/15/19 13:45 Lymph % (Auto) 25.6 % (13-45) 09/15/19 13:45 [place] % (Auto) 7.2 % (3-13) 09/15/19 13:45 Eos % (Auto) 3.2 % (0-6) 09/15/19 13:45 Baso % (Auto) 0.8 % (0-2) 09/15/19 13:45 Absolute Neuts (auto) 4.5 10^3/uL (1.7-8.2) 09/15/19 13:45 Absolute Lymphs (auto) 1.8 10^3/uL (0.5-4.7) 09/15/19 13:45 Absolute Monos (auto) 0.5 10^3/uL (0.1-1.4) 09/15/19 13:45 Absolute Eos (auto) 0.2 10^3/uL (0.0-0.6) 09/15/19 13:45 Absolute Basos (auto) 0.1 10^3/uL (0.0-0.2) 09/15/19 13:45 Seg Neutrophils % 63.2 % (42-78) 09/15/19 13:45 Sodium 139.3 mmol/L (137-145) 09/15/19 13:45 Potassium 4.5 mmol/L (3.6-5.0) 09/15/19 13:45 Chloride 103 mmol/L (98-107) 09/15/19 13:45 Carbon Dioxide 25 mmol/L (22-30) 09/15/19 13:45 Anion Gap 11 (5-19) 09/15/19 13:45 BUN 15 mg/dL (7-20) 09/15/19 13:45 Creatinine 0.79 mg/dL (0.52-1.25) 09/15/19 13:45 Est GFR ( Amer) > 60 (>60) 09/15/19 13:45 Est GFR (MDRD) Non-Af > 60 (>60) 09/15/19 13:45 Glucose 94 mg/dL (75-110) 09/15/19 13:45 Calcium 9.4 mg/dL (8.4-10.2) 09/15/19 13:45 Magnesium 2.1 mg/dL (1.6-2.3) 09/15/19 13:45 Total Bilirubin 0.6 mg/dL (0.2-1.3) 09/15/19 13:45 Direct Bilirubin 0.2 mg/dL (0.0-0.4) 09/15/19 13:45 Neonat Total Bilirubin Not Reportable 09/15/19 13:45 Neonat Direct Bilirubin Not Reportable 09/15/19 13:45 Neonat Indirect Bili Not Reportable 09/15/19 13:45 AST 39 U/L (14-36) H 09/15/19 13:45 ALT 25 U/L (<35) 09/15/19 13:45 Alkaline Phosphatase 75 U/L (38-126) 09/15/19 13:45 Troponin I < 0.012 ng/mL 09/16/19 00:50 NT-Pro-B Natriuret Pep 202 pg/mL (<450) 09/15/19 13:45 Total Protein 7.4 g/dL (6.3-8.2) 09/15/19 13:45 Albumin 4.4 g/dL (3.5-5.0) 09/15/19 13:45 Triglycerides 154 mg/dL (<150) H 09/16/19 05:39 Cholesterol 169.33 mg/dL (0-200) 09/16/19 05:39 LDL Cholesterol Direct 109 mg/dL (<100) H 09/16/19 05:39 VLDL Cholesterol 30.8 mg/dL (10-31) 09/16/19 05:39 HDL Cholesterol 46 mg/dL (>40) 09/16/19 05:39 Lipase 219.9 U/L (23-300) 09/15/19 13:45 TSH 3.36 uIU/mL (0.47-4.68) 09/15/19 13:45 Urine Color YELLOW 09/15/19 18:13 Urine Appearance CLEAR 09/15/19 18:13 Urine pH 6.0 (5.0-9.0) 09/15/19 18:13 Ur Specific [place] 1.006 09/15/19 18:13 Urine Protein NEGATIVE mg/dL (NEGATIVE) 09/15/19 18:13 Urine Glucose (UA) NEGATIVE mg/dL (NEGATIVE) 09/15/19 18:13 Urine Ketones NEGATIVE mg/dL (NEGATIVE) 09/15/19 18:13 Urine Blood NEGATIVE (NEGATIVE) 09/15/19 18:13 Urine Nitrite NEGATIVE (NEGATIVE) 09/15/19 18:13 Urine Bilirubin NEGATIVE (NEGATIVE) 09/15/19 18:13 Urine Urobilinogen NEGATIVE mg/dL (<2.0) 09/15/19 18:13 Ur Leukocyte Esterase SMALL (NEGATIVE) H 09/15/19 18:13 Urine WBC (Auto) 9 /HPF 09/15/19 18:13 Urine RBC (Auto) 1 /HPF 09/15/19 18:13 Urine Bacteria (Auto) TRACE /HPF 09/15/19 18:13 Squamous Epi Cells Auto 1 /HPF 09/15/19 18:13 Urine Mucus (Auto) RARE /LPF 09/15/19 18:13 Urine Ascorbic Acid NEGATIVE (NEGATIVE) 09/15/19 18:13 09/15/19 09/15/19 09/16/19 13:45 18:13 00:50 Troponin I < 0.012 < 0.012 < 0.012 NT-Pro-B Natriuret Pep 202 Impressions: Chest X-Ray 09/15/19 13:19 IMPRESSION: NO ACUTE RADIOGRAPHIC FINDING IN THE CHEST. Stroke Is this a Stroke Patient?: No Acute Heart Failure - Is this a Heart Failure Patient?: No
--- NOTE | 2019-09-18 23:26 | DRAGON STRESS TEST REPORT ---
Intravenous Lexiscan Cardiolite stress test using single photon emmision computerized tomography. Date of procedure: 09/16/2019. Ordering Provider: Dr. Lashawn Leonardo.. Patient's status: In Patient. Indication: Chest pain. Coronary risk factors: Age, hypertension, and dyslipidemia. Resting EKG: Sinus Rhythm. EKG within normal limits. Stress EKG: No changes of ischemia. The patient had no chest pain or discomfort, and there were no arrhythmias seen. Reason for termination: Protocol. Conclusions: Normal EKG and hemodynamic response to IV Lexiscan. Nuclear data: At rest the patient was given 10.27 millicuries of technetium 99m sestamibi injected intravenously. As per protocol rest non gated SPECT images were obtained. Subsequently the patient was given intravenous Lexiscan at a dose of 0.4 mg in 5 mL intravenously, followed by flush with normal saline. Subsequently the stress dose of 30.6 millicuries of technetium 99m sestamibi was injected intravenously. As per protocol stress gated images were obtained. Nuclear interpretation: Review of images showed that all segments of the myocardium had normal perfusion at rest, and normal perfusion post stress with IV Lexiscan. All segments of the myocardium had normal motion, contraction, and thickening by gated study. T. I D. ratio was normal at 0.96. There is no transient ischemic dilatation of the left ventricle. Computer read rest, and stress left ventricular ejection fraction were 67 %, and 63 %, respectively. Conclusion: 1. There is no scintigraphic evidence of Lexiscan induced myocardial ischemia. 2. There is no scintigraphic evidence of myocardial infarction/scar. Recommendations: Aggressive risk factor modification, and treating the underlying co- morbidities. MTDD
== END 2019-09-16 17:38 | disposition home or self-care (01) ==
LOC: ER 13:02 → EH 19:44 → 5 22:45
PROVIDERS: ADMIT Internal Medicine; ATTEND Internal Medicine
DX: R07.89 Other chest pain (principal); K21.9 Gastro-esophageal reflux disease without esophagitis; E78.5 Hyperlipidemia, unspecified; I10 Essential (primary) hypertension; R06.02 Shortness of breath; E03.2 Hypothyroidism due to medicaments and other exogenous substances; Z79.899 Other long term (current) drug therapy; Z85.850 Personal history of malignant neoplasm of thyroid; Z82.49 Family history of ischemic heart disease and other diseases of the circulatory system; Z23 Encounter for immunization
CPT/HCPCS: 93005; 99285; 36415 ×2; 83690; 83735; 84443; 85025; 80053; 81001; 84484 ×2; 80061; 83880; 93017; 71046; 78452; 90686; 93010; G0378 ×3; A9500; J2785; A9270 ×4; J3490 ×3; Q9969